=== PATIENT | male | born 1945 | race Caucasian/White ===

== ENCOUNTER 2023-03-16 09:57 | Outpatient (CLI) | payer MEDICARE ==
[2023-03-16 11:23] LABS: Hemoglobin 10.9 g/dL (13.5-17.5); Mean Corpuscular HGB CONC 32.5 g/dL (32.0-36.0); Mean Corpuscular Hemoglobin 25.5 pg (27.0-33.0); Mean Corpuscular Volume 78.3 fl (81.2-95.1); Mean Platelet Volume 10.5 fl (7.4-10.4); Platelet Count 228 10x3/uL (150-450); RBC Distribution Width 14.1 % (11.5-14.5); Red Blood Cell (RBC) Count 4.28 10x6/uL (4.32-5.72); White Blood Cell (WBC) Count 6.7 10x3/uL (3.5-10.5)
[2023-03-16 11:43] LABS: Anion Gap 15 mmol/L (10-20); BUN (Urea Nitrogen) 11 mg/dL (8.4-25.7); Calc. Creatinine Clearance 0 mL/min (70-130); Calcium 9.1 mg/dL (7.8-10.44); Carbon Dioxide 27 mmol/L (23-31); Chloride 96 mmol/L (98-107); Estimated GFR 88; Glucose 177 mg/dL (83-110); Potassium 3.6 mmol/L (3.5-5.1); Sodium 134 mmol/L (136-145)
== END 2023-03-16 09:58 | disposition home or self-care (01) ==
LOC: LABBT 09:57
PROVIDERS: ATTEND Thoracic Surgery (Cardiothoracic Vascular Surgery)
DX: Z01.812 Encounter for preprocedural laboratory examination (principal); I70.212 Atherosclerosis of native arteries of extremities with intermittent claudication, left leg
CPT/HCPCS: 80048; 85027

== ENCOUNTER 2025-06-04 11:30 | Inpatient (IN) | payer MEDICARE ==
[2025-06-04 13:18] LABS: Anion Gap 14 mmol/L (10-20); BUN (Urea Nitrogen) 12 mg/dL (8.4-25.7); Calc. Creatinine Clearance 0 mL/min (70-130); Calcium 9.2 mg/dL (7.8-10.44); Carbon Dioxide 29 mmol/L (23-31); Chloride 96 mmol/L (98-107); Glucose 106 mg/dL (83-110); Potassium 3.8 mmol/L (3.5-5.1); Sodium 135 mmol/L (136-145)
[2025-06-06] MEDS ORDERED: PHENYLEPHRINE-NS 100 MCG/ML 10 ML SYRINGE ONE ×2 (06:38→09:59)
[2025-06-06] MEDS ORDERED: Heparin 10,000 UNITS/1 ML VIAL 30,000 UNITS in Sodium Chloride 0.9% 1,000 ML FS SCH (06:45)
[2025-06-06] MEDS ORDERED: PROPOFOL 20 ML ONE (07:03)
[2025-06-06] MEDS ORDERED: Lidocaine 1% PF 5 ML VIAL ONE ×3 (07:07→09:46)
[2025-06-06] MEDS ORDERED: Lidocaine 2% 6 ML (Jelly) SYR ONE (07:07)
[2025-06-06] MEDS ORDERED: Rocuronium Bromide 10 MG/ML (10ML VIAL) ONE (07:15)
[2025-06-06] MEDS ORDERED: Thrombin 5000 UNITS/5 ML VIAL ONE (07:15)
[2025-06-06] MEDS ORDERED: Calcium Chloride 1 GM/10 ML Abboject SYRINGE ONE (07:15)
[2025-06-06] MEDS ORDERED: Heparin 5,000 UNITS/ML VIAL ONE (07:15)
[2025-06-06] MEDS ORDERED: Glycopyrrolate 0.2 MG/ML 5 ML SYRINGE ONE (07:15)
[2025-06-06] MEDS ORDERED: Heparin 30,000 units/30 ml VIAL ONE (07:15)
[2025-06-06] MEDS ORDERED: Cardioplegic Soln 1,000 ML BAG ONE (07:15)
[2025-06-06] MEDS ORDERED: CEFAZOLIN 2 GM VIAL ONE (07:20)
[2025-06-06] MEDS ORDERED: fentaNYL PF 100 MCG/2 ML SYRINGE ONE (09:52)
[2025-06-06] MEDS ORDERED: Guaifenesin DM 100-10/5 ML UDCUP PO PRN (10:55)
[2025-06-06] MEDS ORDERED: Bisacodyl 10 MG SUPP PR PRN (10:55)
[2025-06-06] MEDS ORDERED: Albumin 5% 12.5 GM (250 mL) BOT IVPB PRN (10:55)
[2025-06-06] MEDS ORDERED: Nitroglycerin 50 MG/250 ML BOT 250 ML IVPB PRN (10:55)
[2025-06-06] MEDS ORDERED: EPINEPHrine 1 MG/10 ML Abboject SYRINGE ONE (10:57)
[2025-06-06 11:28] LABS: Actual Bicarbonate (HCO3a) 21.2 mEq/L (22-28); Base Excess (BEa) -4.0 mEq/L (-2.0 to +3.0); CO2 Tension 39.2 mmHg (35.0-45.0); Calcium, Ionized (arterial) 1.17 mmol/L (1.12-1.30); Hematocrit-ABG 36 % (42.0-52.0); Hemoglobin (Hb) 12.1 g/dL (14.0-18.0); O2 Tension (PaO2), arterial 97.1 mmHg (> 60.0); Potassium - ABG Lab 3.56 mmol/L (3.70-5.30); pH, Arterial 7.351 (7.35-7.45)
[2025-06-06] MEDS ORDERED: Dextrose 50% Abboject 50 ML SYRINGE SLOW IVP PRN (11:30)
[2025-06-06] MEDS ORDERED: Glucagon 1 MG/ML KIT SC PRN (11:30)
[2025-06-06 11:31] LABS: Puncture Site Arterial Line
[2025-06-06 11:32] LABS: ALV-art Gradient 281.700 mmHg (0-20)
[2025-06-06] MEDS: D5 1/2 NS w/20 mEq KCL 1,000 ML IV SCH (11:36)
[2025-06-06 11:40] VITALS: BMI 31.3
[2025-06-06 11:43] LABS: #Basophils 0.06 10x3/uL (0.0-0.2); #Eosinophils 0.18 10x3/uL (0.0-0.7); #Monocytes 1.21 10x3/uL (0.11-0.59); #Neutrophils 13.65 10x3/uL (1.40-6.50); %Basophils 0.4 % (0.0-1.0); %Eosinophils 1.1 % (0.0-10.0); %Lymphocytes 10.4 % (21.0-51.0); %Monocytes 7.1 % (0.0-10.0); %Neutrophils 80.3 % (42.0-75.0); Hematocrit 32.5 % (42.0-52.0); Hemoglobin 10.9 g/dL (14.0-18.0); Mean Corpuscular Hemoglobin 28.2 pg (27.0-31.0); Mean Corpuscular Volume 84.2 fL (78.0-98.0); Platelet Count 178 10x3/uL (130-400); Red Blood Cell (RBC) Count 3.86 mill/uL (4.70-6.10); White Blood Cell (WBC) Count 16.99 10x3/uL (4.8-10.8)
[2025-06-06 11:57] LABS: INR-International Normal Ratio 1.3; PTT 31.6 sec (22.9-36.1); Prothrombin Time 16.7 sec (12.0-14.7)
[2025-06-06 12:04] LABS: Anion Gap 10 mmol/L (10-20); BUN (Urea Nitrogen) 10 mg/dL (8.4-25.7); Calc. Creatinine Clearance 133 mL/min (70-130); Calcium 7.7 mg/dL (7.8-10.44); Carbon Dioxide 23 mmol/L (23-31); Chloride 107 mmol/L (98-107); Glucose 181 mg/dL (83-110); Potassium 3.5 mmol/L (3.5-5.1); Sodium 136 mmol/L (136-145)
[2025-06-06] MEDS: Magnesium 2 GM/50 ML(in water) 2 GM in Premix 1 BAG IVPB SCH (12:24)
[2025-06-06] MEDS: INSULIN REGULAR IN 0.9 % NACL 100 UNITS in Premix 1 BAG IVPB SCH (12:24)
[2025-06-06] MEDS: Albumin 5% 12.5 GM (250 mL) BOT IVPB PRN (13:39)
[2025-06-06] MEDS: Post-Op Insulin Drip Protocol IVPB ONE (13:45)
[2025-06-06] MEDS: Ketorolac Tromethamine 30 MG (1 mL) VIAL IVP SCH (13:47)
[2025-06-06 14:04] LABS: Cardiac Risk 2.7 (Less than 4.5); Cholesterol 74.0 mg/dl (< 200 Desired); HDL Cholesterol 27.0 mg/dL (>60 Neg Risk); LDL Cholesterol, Calculated 37.0 mg/dL; Triglycerides 51.0 mg/dL (Less than 150)
[2025-06-06 14:56] LABS: Actual Bicarbonate (HCO3a) 22.3 mEq/L (22-28); Base Excess (BEa) -1.2 mEq/L (-2.0 to +3.0); CO2 Tension 33.1 mmHg (35.0-45.0); Calcium, Ionized (arterial) 1.13 mmol/L (1.12-1.30); Hematocrit-ABG 34 % (42.0-52.0); Hemoglobin (Hb) 11.5 g/dL (14.0-18.0); O2 Tension (PaO2), arterial 107.7 mmHg (> 60.0); Potassium - ABG Lab 3.62 mmol/L (3.70-5.30); pH, Arterial 7.446 (7.35-7.45)
[2025-06-06 14:58] LABS: Puncture Site Arterial Line
[2025-06-06 14:59] LABS: ALV-art Gradient 64.825 mmHg (0-20)
[2025-06-06] MEDS: Gabapentin 300 MG CAP PO SCH (15:22)
[2025-06-06 17:30] LABS: Hematocrit 30.5 % (42.0-52.0); Hemoglobin 10.3 g/dL (14.0-18.0)
[2025-06-06 17:41] LABS: Potassium 3.7 mmol/L (3.5-5.1)
[2025-06-06] MEDS: Ondansetron PF 4 MG/2 ML Vial IVP PRN (18:20)
[2025-06-06] MEDS: Potassium Chloride 20 MEQ (100 mL) BAG IVPB PRN (19:27)
[2025-06-06] MEDS: Famotidine/PF 20 mg/2ml Vial SLOW IVP SCH (19:27)
[2025-06-07 04:28] LABS: #Basophils Less than 0.03 10x3/uL (0.0-0.2); #Eosinophils Less than 0.03 10x3/uL (0.0-0.7); #Monocytes 1.52 10x3/uL (0.11-0.59); #Neutrophils 10.76 10x3/uL (1.40-6.50); %Basophils 0.2 % (0.0-1.0); %Eosinophils 0.0 % (0.0-10.0); %Lymphocytes 6.2 % (21.0-51.0); %Monocytes 11.5 % (0.0-10.0); %Neutrophils 81.7 % (42.0-75.0); Hematocrit 29.5 % (42.0-52.0); Hemoglobin 9.6 g/dL (14.0-18.0); Mean Corpuscular Hemoglobin 27.4 pg (27.0-31.0); Mean Corpuscular Volume 84.0 fL (78.0-98.0); Platelet Count 161 10x3/uL (130-400); Red Blood Cell (RBC) Count 3.51 mill/uL (4.70-6.10); White Blood Cell (WBC) Count 13.17 10x3/uL (4.8-10.8)
[2025-06-07 04:48] LABS: Anion Gap 12 mmol/L (10-20); BUN (Urea Nitrogen) 10 mg/dL (8.4-25.7); Calc. Creatinine Clearance 131 mL/min (70-130); Calcium 7.9 mg/dL (7.8-10.44); Carbon Dioxide 23 mmol/L (23-31); Chloride 107 mmol/L (98-107); Glucose 105 mg/dL (83-110); Potassium 3.8 mmol/L (3.5-5.1); Sodium 138 mmol/L (136-145)
[2025-06-07] MEDS: Magnesium 2 GM/50 ML(in water) 2 GM in Premix 1 BAG IVPB SCH (08:43)
[2025-06-07] MEDS: Enoxaparin 40 MG (0.4 mL) SYRINGE SC SCH (08:43)
[2025-06-07] MEDS: Aspirin 325 MG TAB PO SCH (08:44)
[2025-06-07] MEDS ORDERED: Insulin Glargine 30 UNITS/0.3 ML VIAL SC PRN (11:21)
[2025-06-07] MEDS ORDERED: diphenhydrAMINE 25 MG CAP PO PRN (17:16)
[2025-06-07] MEDS ORDERED: Milk Of Magnesia 30 ML UDCUP PO PRN (17:16)
[2025-06-07] MEDS ORDERED: Mineral Oil ENEMA PR PRN (17:16)
[2025-06-07] MEDS ORDERED: Artificial Tear Ophth Sol 15 ML BOT EA EYE PRN (17:16)
[2025-06-07] MEDS ORDERED: Nitroglycerin 0.4 MG TAB (25 Tab Bottle) SL PRN (17:16)
[2025-06-07] MEDS ORDERED: Guaifenesin DM 100-10/5 ML UDCUP PO PRN (17:16)
[2025-06-07] MEDS: Pantoprazole 40 MG DR.TAB PO SCH ×2 (18:09→18:51)
[2025-06-07] MEDS: Furosemide 40 MG TAB PO SCH (18:10)
[2025-06-08] MEDS: Pantoprazole 40 MG DR.TAB PO SCH (09:31)
[2025-06-08] MEDS: Furosemide 40 MG TAB PO SCH (09:32)
[2025-06-09] MEDS: Acetaminophen 325 MG TAB PO PRN (12:11)
[2025-06-09] MEDS: hydrALAZINE 20 MG/ML VIAL SLOW IVP PRN (12:11)
[2025-06-09] MEDS: Digoxin 0.5 MG/2 ML AMP SLOW IVP SCH (17:00)
[2025-06-09] MEDS: Amiodarone 200 MG TAB PO SCH (21:13)
[2025-06-10] MEDS: diphenhydrAMINE 25 MG CAP PO PRN (21:02)
[2025-06-10] MEDS: Mupirocin 1 GM TUBE TP SCH (21:06)
[2025-06-12 07:51] VITALS: BP 149/63; TEMP 98
[2025-06-12] MEDS: Mag-Al 1200 mg/1200 mg/30 ML UDCUP PO PRN (08:05)
== END 2025-06-12 10:45 | disposition home or self-care (01) | DRG 234 ==
LOC: SURG A 06-06 05:58 → CCU 06-06 10:19 → PCU 06-07 17:32
PROVIDERS: ADMIT Thoracic Surgery (Cardiothoracic Vascular Surgery); ATTEND Thoracic Surgery (Cardiothoracic Vascular Surgery)
PROC: 02100Z9 Bypass Coronary Artery, One Artery from Left Internal Mammary, Open Approach (ICD-10-PCS; principal; 2025-06-06)
PROC: 021109W Bypass Coronary Artery, Two Arteries from Aorta with Autologous Venous Tissue, Open Approach (ICD-10-PCS; 2025-06-06)
PROC: 06BP0ZZ Excision of Right Saphenous Vein, Open Approach (ICD-10-PCS; 2025-06-06)
PROC: 02L70CK Occlusion of Left Atrial Appendage with Extraluminal Device, Open Approach (ICD-10-PCS; 2025-06-06)
PROC: 02580ZZ Destruction of Conduction Mechanism, Open Approach (ICD-10-PCS; 2025-06-06)
PROC: 4A133R1 Monitoring of Arterial Saturation, Peripheral, Percutaneous Approach (ICD-10-PCS; 2025-06-06)
PROC: 30233J1 Transfusion of Nonautologous Serum Albumin into Peripheral Vein, Percutaneous Approach (ICD-10-PCS; 2025-06-06)
PROC: 3E033XZ Introduction of Vasopressor into Peripheral Vein, Percutaneous Approach (ICD-10-PCS; 2025-06-06)
DX: I25.10 Atherosclerotic heart disease of native coronary artery without angina pectoris (principal); I97.190 Other postprocedural cardiac functional disturbances following cardiac surgery; I48.0 Paroxysmal atrial fibrillation; I73.9 Peripheral vascular disease, unspecified; I10 Essential (primary) hypertension; E11.9 Type 2 diabetes mellitus without complications; E78.5 Hyperlipidemia, unspecified; Z79.899 Other long term (current) drug therapy; Z79.01 Long term (current) use of anticoagulants; Z79.84 Long term (current) use of oral hypoglycemic drugs; Z88.8 Allergy status to other drugs, medicaments and biological substances; Z79.82 Long term (current) use of aspirin; Z79.4 Long term (current) use of insulin
CPT/HCPCS: 36415; 36416; 36430; 71045; 80048; 80061; 82805; 83036; 85025; 85610; 85730; 86850; 86900; 86901; 93005; 93010; 93798; 94002; 94150; A4311; A4648; C1751; C1889; J0165; J0169; J0282; J0360; J0665; J1100; J1160; J1308; J1644; J1650; J1815; J1885; J2250; J2272; J2371; J2405; J2440; J2704; J3010; J3373; J3475; J3480; J7070; P9045; S0017

== ENCOUNTER 2025-07-09 14:53 | Outpatient (CLI) | payer MEDICARE ==
[2025-07-09 15:54] LABS: #Basophils 0.07 10x3/uL (0.0-0.2); #Eosinophils 0.44 10x3/uL (0.0-0.7); #Monocytes 0.89 10x3/uL (0.11-0.59); #Neutrophils 5.45 10x3/uL (1.40-6.50); %Basophils 0.9 % (0.0-1.0); %Eosinophils 5.7 % (0.0-10.0); %Lymphocytes 11.2 % (21.0-51.0); %Monocytes 11.5 % (0.0-10.0); %Neutrophils 70.4 % (42.0-75.0); Hematocrit 29.8 % (42.0-52.0); Hemoglobin 9.4 g/dL (14.0-18.0); Mean Corpuscular Hemoglobin 26.3 pg (27.0-31.0); Mean Corpuscular Volume 83.5 fL (78.0-98.0); Platelet Count 252 10x3/uL (130-400); Red Blood Cell (RBC) Count 3.57 mill/uL (4.70-6.10); White Blood Cell (WBC) Count 7.74 10x3/uL (4.8-10.8)
[2025-07-09 16:08] LABS: Anion Gap 15 mmol/L (10-20); BUN (Urea Nitrogen) 9 mg/dL (8.4-25.7); Calc. Creatinine Clearance 0 mL/min (70-130); Calcium 8.8 mg/dL (7.8-10.44); Carbon Dioxide 27 mmol/L (23-31); Chloride 93 mmol/L (98-107); Glucose 116 mg/dL (83-110); Potassium 3.9 mmol/L (3.5-5.1); Sodium 131 mmol/L (136-145)
== END 2025-07-09 14:54 | disposition home or self-care (01) ==
LOC: LABBT 14:53
PROVIDERS: ATTEND Internal Medicine Cardiovascular Disease
DX: Z01.812 Encounter for preprocedural laboratory examination (principal); I48.92 Unspecified atrial flutter
CPT/HCPCS: 80048; 85025

== ENCOUNTER 2025-07-12 06:00 | Day surgery (SDC) | payer MEDICARE ==
[2025-07-09 15:12] VITALS: BMI 29.0
[2025-07-12] MEDS ORDERED: Lidocaine 1% PF 5 ML VIAL ONE (08:14)
[2025-07-12] MEDS ORDERED: PROPOFOL 20 ML ONE (08:14)
== END 2025-07-12 10:29 | disposition home or self-care (01) ==
LOC: SDC 06:00
PROVIDERS: ATTEND Internal Medicine Cardiovascular Disease
PROC: B24BZZ4 Ultrasonography of Heart with Aorta, Transesophageal (ICD-10-PCS; principal; 2025-07-12)
PROC: 5A2204Z Restoration of Cardiac Rhythm, Single (ICD-10-PCS; 2025-07-12)
DX: I48.91 Unspecified atrial fibrillation (principal); I48.92 Unspecified atrial flutter; I08.1 Rheumatic disorders of both mitral and tricuspid valves; I45.10 Unspecified right bundle-branch block; I73.9 Peripheral vascular disease, unspecified; I10 Essential (primary) hypertension; E11.9 Type 2 diabetes mellitus without complications; Z95.1 Presence of aortocoronary bypass graft; Z87.891 Personal history of nicotine dependence; Z98.41 Cataract extraction status, right eye; Z98.42 Cataract extraction status, left eye; Z88.8 Allergy status to other drugs, medicaments and biological substances; Z79.84 Long term (current) use of oral hypoglycemic drugs; Z79.85 Long-term (current) use of injectable non-insulin antidiabetic drugs; Z79.899 Other long term (current) drug therapy
CPT/HCPCS: 92960; 93005; 93312; J2704; 93010

== ENCOUNTER 2025-07-16 16:22 | Emergency (ER) | payer MEDICARE ==
[2025-07-16 17:37] LABS: #Basophils 0.11 10x3/uL (0.0-0.2); #Eosinophils 0.45 10x3/uL (0.0-0.7); #Monocytes 0.86 10x3/uL (0.11-0.59); #Neutrophils 4.37 10x3/uL (1.40-6.50); %Basophils 1.6 % (0.0-1.0); %Eosinophils 6.4 % (0.0-10.0); %Lymphocytes 17.9 % (21.0-51.0); %Monocytes 12.1 % (0.0-10.0); %Neutrophils 61.7 % (42.0-75.0); Hematocrit 30.6 % (42.0-52.0); Hemoglobin 9.7 g/dL (14.0-18.0); Mean Corpuscular Hemoglobin 26.1 pg (27.0-31.0); Mean Corpuscular Volume 82.5 fL (78.0-98.0); Platelet Count 310 10x3/uL (130-400); Red Blood Cell (RBC) Count 3.71 mill/uL (4.70-6.10); White Blood Cell (WBC) Count 7.08 10x3/uL (4.8-10.8)
[2025-07-16 17:58] LABS: ALT (SGPT) 12 U/L (Less than 45); AST (SGOT) 17 U/L (11-34); Albumin 3.4 g/dL (3.1-4.5); Alkaline Phosphatase 101 U/L (40-110); Anion Gap 14 mmol/L (10-20); BUN (Urea Nitrogen) 12 mg/dL (8.4-25.7); Bilirubin, Total 0.4 mg/dL (0.3-1.2); Calc. Creatinine Clearance 0 mL/min (70-130); Calcium 8.8 mg/dL (7.8-10.44); Carbon Dioxide 26 mmol/L (23-31); Chloride 96 mmol/L (98-107); Globulin 2.6 g/dL (2.4-3.5); Glucose 119 mg/dL (83-110); Magnesium 1.8 mg/dL (1.6-2.6); Potassium 3.8 mmol/L (3.5-5.1); Sodium 132 mmol/L (136-145)
[2025-07-16] MEDS ORDERED: Metoprolol Tartrate 5 MG (5 mL) VIAL ONE (18:12)
[2025-07-16 18:50] LABS: Bacteria/HPF None Seen HPF (None Seen); CAUTI Indications for Culture Pelvic or flank pain; Glucose, Urine (Dipstick) Normal (Negative); Leukocyte Negative Leu/uL (Negative); Protein, Urine (Dipstick) Negative (Neg-Trace); RBC/HPF 0-3 HPF (0-3); Specific Gravity, Urine 1.011 (1.002-1.036); WBC/HPF 0-3 HPF (0-3)
[2025-07-16 18:54] LABS: Urine Culture Reflex No No
[2025-07-16] MEDS ORDERED: hydrALAZINE 20 MG/ML VIAL ONE (18:55)
== END 2025-07-16 19:42 | disposition home or self-care (01) ==
LOC: ERS 16:22
DX: I10 Essential (primary) hypertension (principal); E11.9 Type 2 diabetes mellitus without complications
CPT/HCPCS: 71045; 80053; 81001; 83735; 83880; 84484; 85025; 93005; J0360; 96374; 96375